=== PATIENT | female | born 1985 | race Caucasian/White ===

== ENCOUNTER 2018-05-15 12:09 | Emergency (ER) | payer OTHER ==
[2018-05-15 12:49] VITALS: BP 140/91
--- NOTE | 2018-05-15 13:22 | UC ---
Respiratory Complaint HPI - HPI Summary HPI Summary: Pt presents with c/o cough and nasal congestion X 3 days. - History of Current Complaint Chief Complaint: UCRespiratory Stated Complaint: HEAD/CHEST CONGESTION COUGH Time Seen by Provider: 05/15/18 13:13 Hx Obtained From: Patient Hx Last Menstrual Period: 04/27/18 ?: No Onset/Duration: Sudden Onset, Lasting Days, Still Present Timing: Constant Severity Initially: Mild Severity Currently: Mild Pain Intensity: 2 Character: Cough: Nonproductive Aggravating Factors: Deep Breaths, Recumbent Position Alleviating Factors: Nothing Associated Signs And Symptoms: Positive: URI, Nasal Congestion - Risk Factors Pulmonary Embolism Risk Factors: Negative Cardiac Risk Factors: Negative Pseudomonas Risk Factors: Negative Tuberculosis Risk Factors: Negative - Allergies/Home Medications Allergies/Adverse Reactions: Allergies Allergy/AdvReac Type Severity Reaction Status Date / Time No Known Allergies Allergy Verified 05/15/18 12:49 Home Medications: Home Medications Ethinyl Estradiol/Drospirenone [Gianvi 3 mg-0.02 mg Tablet] 1 tab PO DAILY 05/15 [History Confirmed 05/15/18] PMH/Surg Hx/FS Hx/Imm Hx Previously Healthy: Yes - Surgical History Surgical History: None - Family History Known Family History: Positive: Cardiac Disease - Social History Occupation: Employed Full-time Lives: With Family Alcohol Use: None Substance Use Type: None Smoking Status (MU): Never Smoked Tobacco Have You Smoked in the Last Year: No - Immunization History Most Recent Influenza Vaccination: unknown Most Recent Tetanus Shot: 08/18/15 Most Recent Pneumonia Vaccination: unknown Review of Systems All Other Systems Reviewed And Are Negative: Yes Constitutional: Positive: Fatigue Skin: Positive: Negative Eyes: Positive: Negative ENT: Positive: Sinus Congestion Respiratory: Positive: Cough Cardiovascular: Positive: Negative Gastrointestinal: Positive: Negative Genitourinary: Positive: Negative Motor: Positive: Negative Neurovascular: Positive: Negative Musculoskeletal: Positive: Myalgia Neurological: Positive: Negative Psychological: Positive: Negative Is Patient Immunocompromised?: No Physical Exam Triage Information Reviewed: Yes Appearance: Well-Appearing Vital Signs: Initial Vital Signs Temp 99.2 F 05/15/18 12:47 Pulse 110 05/15/18 12:47 Resp 20 05/15/18 12:47 BP 140/91 05/15/18 12:47 Pulse Ox 100 05/15/18 12:47 Vital Signs Reviewed: Yes Eye Exam: Normal ENT Exam: Normal Dental Exam: Normal Neck exam: Normal Respiratory Exam: Normal Respiratory: Positive: Normal breath sounds Cardiovascular Exam: Normal Musculoskeletal Exam: Normal Neurological Exam: Normal Psychological Exam: Normal Skin Exam: Normal UC Diagnostic Evaluation - Laboratory O2 Sat by Pulse Oximetry: 100 Respiratory Course/Dx - Differential Dx/Diagnosis Differential Diagnosis/HQI/PQRI: Bronchitis, Influenza Provider Diagnosis: Viral syndrome Discharge - Sign-Out/Discharge Documenting (check all that apply): Patient Departure All imaging exams completed and their final reports reviewed: No Studies - Discharge Plan Condition: Stable Disposition: HOME Prescriptions: Albuterol HFA INHALER* [Ventolin HFA Inhaler*] 1 - 2 puff INH Q4H PRN #1 mdi PRN Reason: Sob/Wheezing Benzonatate CAP* [Tessalon 100 MG CAP*] 200 mg PO Q8H PRN #30 cap PRN Reason: Cough Patient Education Materials: Viral Syndrome (ED) Forms: *Work Release Referrals: [facility] [Outside] - If Needed No Primary Care Phys,NOPCP [Primary Care Provider] - - Billing Disposition and Condition Condition: STABLE Disposition: Home
== END 2018-05-15 13:39 | disposition home or self-care (01) ==
LOC: UCEAST 12:09
DX: B34.9 Viral infection, unspecified (principal); R09.81 Nasal congestion
CPT/HCPCS: 99212; G0463

== ENCOUNTER 2018-06-19 12:24 | Emergency (ER) | payer OTHER ==
[2018-06-19 12:33] VITALS: BP 138/98
--- NOTE | 2018-06-19 13:15 | UC ---
Nausea/Vomiting/Diarrhea HPI - HPI Summary HPI Summary: 32-year-old female presents with onset of intermittent lower abdominal cramping , nausea, and diarrhea last night. States cramping improves after defecation. Reports 4-5 episodes of watery diarrhea. States she had been out drinking last night and had several carbonated mixed drinks. States she's had some similar issues in the past when she has consumed large amounts of carbonated beverages. Denies fever, chills, weakness, dizziness, lightheadedness, vomiting, blood in stool, melena, dysuria, frequency, urgency, hematuria, recent travel out of the country or recent antibiotic use. - History of Current Complaint Chief Complaint: UCGeneralIllness Stated Complaint: SEVERE STOMACH PAIN Hx Obtained From: Patient Hx Last Menstrual Period: 05/16/18 Pain Intensity: 6 - Allergies/Home Medications Allergies/Adverse Reactions: Allergies Allergy/AdvReac Type Severity Reaction Status Date / Time No Known Allergies Allergy Verified 05/15/18 12:49 PMH/Surg Hx/FS Hx/Imm Hx Previously Healthy: Yes - Denies significant PMH - Surgical History Surgical History: None - Family History Known Family History: Positive: Cardiac Disease - Social History Occupation: Employed Full-time Lives: With Family Alcohol Use: None Substance Use Type: None Smoking Status (MU): Never Smoked Tobacco Have You Smoked in the Last Year: No - Immunization History Most Recent Influenza Vaccination: unknown Most Recent Tetanus Shot: 08/18/15 Most Recent Pneumonia Vaccination: unknown Review of Systems All Other Systems Reviewed And Are Negative: Yes Constitutional: Negative: Fever, Chills Skin: Positive: Negative Respiratory: Negative: Shortness Of Breath, Cough Cardiovascular: Negative: Palpitations, Chest Pain Gastrointestinal: Positive: Abdominal Pain - Intermittent cramping, Diarrhea, Nausea. Negative: Vomiting Genitourinary: Negative: Dysuria, Hematuria, Frequency, Urgency, Vaginal/Penile Discharge, Abnormal Bleeding Musculoskeletal: Positive: Negative Neurological: Positive: Negative Is Patient Immunocompromised?: No Physical Exam - Summary Physical Exam Summary: GENERAL APPEARANCE: Well developed, well nourished, alert and cooperative, and appears to be in no acute distress. EYES: Conjunctiva clear. No drainage. Vision is grossly intact. EARS: External auditory canals and tympanic membranes clear, hearing grossly intact. NOSE: No nasal discharge. THROAT: Pharynx normal. No tonsilar inflammation, swelling, exudate, or lesions. Uvula midline. Oral cavity normal. Teeth and gingiva in good general condition. NECK: Neck supple, non-tender without lymphadenopathy. CARDIAC: Normal S1 and S2. No S3, S4 or murmurs. Rhythm is regular. There is no peripheral edema, cyanosis or pallor. Extremities are warm and well perfused. Capillary refill is less than 2 seconds. Peripheral pulses intact. LUNGS: Clear to auscultation without rales, rhonchi, wheezing or diminished breath sounds. ABDOMEN: Positive bowel sounds. Soft, nondistended abdomen. Mild lower abdominal tenderness. No guarding or rebound. No masses or hepatosplenomegally. No CVA tenderness. MUSKULOSKELETAL: ROM intact to all extremities. No joint erythema or tenderness. Normal muscular development. Normal gait. SKIN: Skin normal color, texture and turgor with no lesions or eruptions. Triage Information Reviewed: Yes Vital Signs: Initial Vital Signs Temp 98 F 06/19/18 12:31 Pulse 98 06/19/18 12:31 Resp 17 06/19/18 12:31 BP 138/98 06/19/18 12:31 Pulse Ox 100 06/19/18 12:31 Vital Signs Reviewed: Yes Naus/Vom/Diarrhea Course/Dx - Course Course Of Treatment: 32-year-old female presents with onset of intermittent lower abdominal cramping , nausea, and diarrhea last night. States cramping improves after defecation. Reports 4-5 episodes of watery diarrhea. States she had been out drinking last night and had several carbonated mixed drinks. States she's had some similar issues in the past when she has consumed large amounts of carbonated beverages. Denies fever, chills, weakness, dizziness, lightheadedness, vomiting, blood in stool, melena, dysuria, frequency, urgency, hematuria, recent travel out of the country or recent antibiotic use. Afebrile. Vital signs stable. Exam was overall unremarkable except for some mild lower abdominal tenderness without guarding or rebound. Recommending conservative treatment for acute diarrhea. She is to return here or follow up with primary care provider in 3-5 days if symptoms do not improve. Anticipatory guidance and warning symptoms were reviewed with the patient. Verbalizes understanding and agrees with plan of care. - Differential Dx/Diagnosis Differential Diagnoses - Female: Appendicitis, Diverticulosis, Gastroenteritis ( Viral), Gastroenteritis (Bacterial), Diarrhea, Colitis, Dehydration Provider Diagnosis: Acute diarrhea Condition At Discharge: Stable Discharge - Sign-Out/Discharge Documenting (check all that apply): Patient Departure All imaging exams completed and their final reports reviewed: No Studies - Discharge Plan Condition: Stable Disposition: HOME Patient Education Materials: Acute Diarrhea (ED) Forms: *Work Release Referrals: No Primary Care Phys,NOPCP [Primary Care Provider] - Additional Instructions: Acute diarrhea typically resolves on its own without treatment over 2-3 days. The most important consideration with diarrhea is avoiding dehydration. Be sure to drink plenty of fluids. Avoid beverages containing caffeine or artificial sweeteners as these can worsen symptoms. Be sure to eat a well balanced diet. Boiled starches and cereals (potatoes, rice , cream of wheat, oatmeal) as well as food such as crackers, toast, bananas, soups and boiled vegetables are usually recommended if you are having watery diarrhea. Be sure to use good hand hygiene to prevent spreading infection. Use an over the counter pain medication such as acetaminophen (Tylenol) or ibuprofen (Advil, Motrin) according to directions as needed for aches and pains. Return here or follow up with your primary care provider in 3-5 days if symptoms persist. Seek immediate medical attention in the emergency room if you have fever greater than 100.5 F, have severe abdominal pain, persistent vomiting, blood in your vomit or stool, you become weak or dizzy, or have any worsening of symptoms. - Billing Disposition and Condition Condition: STABLE Disposition: Home
== END 2018-06-19 13:38 | disposition home or self-care (01) ==
LOC: UCEAST 12:24
DX: R19.7 Diarrhea, unspecified (principal); R10.30 Lower abdominal pain, unspecified; R11.0 Nausea
CPT/HCPCS: 99201; G0463

== ENCOUNTER 2018-09-10 12:04 | Emergency (ER) | payer OTHER ==
[2018-09-10 13:18] LABS: ABS Monocytes 0.6 10^3/ul (0-0.8); ABS Neutrophils 7.4 10^3/ul (1.5-7.7); Eosinophil % 0.5 %; Hematocrit 42 % (35-47); Hemoglobin 14.2 g/dL (12.0-16.0); Lymphocyte % 11.1 %; Mean Corpuscular HGB Conc 34 g/dL (31-36); Mean Corpuscular Hemoglobin 33 pg (27-31); Mean Corpuscular Volume 97 fL (80-97); Mean Platelet Volume 7.4 fL (7.4-10.4); Platelet Count 183 10^3/uL (150-450); Red Blood Count 4.29 10^6 /uL (3.70-4.87); Red Cell Distribution Width 13 % (10-15); White Blood Count 9.1 10^3/uL (3.5-10.8)
[2018-09-10 13:32] LABS: Activated Partial Thrombo Time 29.5 seconds (26.0-38.0); INR 0.92 (0.82-1.09)
[2018-09-10 13:38] LABS: ALT 8 U/L (7-52); AST 12 U/L (13-39); Albumin/Globulin Ratio 1.3 (1-3); Alkaline Phosphatase 55 U/L (34-104); Amylase 18 U/L (29-103); Anion Gap 9 mmol/L (2-11); Blood Urea Nitrogen 9 mg/dL (6-24); C Reactive Protein 139.63 mg/L (<8.01); CO2 Carbon Dioxide 23 mmol/L (22-32); Calcium 8.8 mg/dL (8.6-10.3); Chloride 101 mmol/L (101-111); EGFR African American 109.1 (>60); EGFR Non-African American 90.1 (>60); Glucose 102 mg/dL (70-100); Potassium 3.4 mmol/L (3.5-5.0); Sodium 133 mmol/L (135-145)
[2018-09-10 13:42] LABS: HCG Pregnancy < 0.60 mIU/mL
--- NOTE | 2018-09-10 13:42 | ED ---
Abdominal Pain/Female - HPI Summary HPI Summary: Pt is a 33 y/o F presenting to the ED with a chief complaint of abd pain in the RLQ radiating up to the R flank onset on 09/08/18 during the night. She states that the pain has been constant since then, but intermittent in severity, and much worse since last night. She also reports she has a slight URI, with associated productive cough with white and green phlegm, and nasal congestion, that she has been taking Theraflu for. She reports that the bumps on the road make the pain somewhat worse. The pain is currently an 8/10, but sometimes reduces to a 5/10. She denies sinus pain, fever, nausea, vomiting, vaginal bleeding, vaginal discharge, dysuria, hematuria , or burning with urination. Pt states she had a "kidney infection" when she was a young girl. Pt has no hx kidney stones. Home Medications Medication Instructions Recorded Confirmed Type Ethinyl Estradiol/Drospirenone 1 tab PO DAILY 09/10/18 09/10/18 History [Drospirenone-Ee 3-0.02 mg Tab] - History of Current Complaint Chief Complaint: EDAbdPain Stated Complaint: LOWER RIGHT ABD PAIN Time Seen by Provider: 09/10/18 12:32 Hx Obtained From: Patient, Family/[employer] - mother Hx Last Menstrual Period: 08/10/18 Onset/Duration: Sudden Onset, Lasting Days, Still Present Timing: Constant Severity Initially: Moderate Severity Currently: Severe Pain Intensity: 8 Pain Scale Used: 0-10 Numeric Location: Discrete At: RLQ Radiates: Yes Radiates to: Flank Character: Sharp Aggravating Factor(s): Movement Alleviating Factor(s): Nothing Associated Signs and Symptoms: Positive: Cough. Negative: Fever, Urinary Symptoms, Vaginal Bleeding, Vaginal Discharge, Nausea, Vomiting Allergies/Adverse Reactions: Allergies Allergy/AdvReac Type Severity Reaction Status Date / Time No Known Allergies Allergy Verified 09/10/18 12:05 Home Medications: Home Medications Ethinyl Estradiol/Drospirenone [Drospirenone-Ee 3-0.02 mg Tab] 1 tab PO DAILY [History Confirmed 09/10/18] PMH/Surg Hx/FS Hx/Imm Hx Previously Healthy: No Endocrine/Hematology History: Denies: Hx Diabetes History: Reports: Hx Kidney Infection - Surgical History Surgical History: Yes - tonsillectomy Infectious Disease History: No Infectious Disease History: Denies: Traveled Outside the [place] in Last 30 Days - Family History Known Family History: Positive: Cardiac Disease - Social History Alcohol Use: Weekly Hx Substance Use: No Substance Use Type: Reports: None Hx Tobacco Use: No Smoking Status (MU): Never Smoked Tobacco Have You Smoked in the Last Year: No Review of Systems Negative: Fever Positive: Nasal Discharge. Negative: Other - sinus pain Cardiovascular: Negative Positive: Cough Positive: Abdominal Pain. Negative: Vomiting, Nausea Negative: burning, dysuria, discharge, hematuria Positive: Other - right flank pain Skin: Negative Neurological: Negative Psychological: Normal All Other Systems Reviewed And Are Negative: Yes Physical Exam - Summary Physical Exam Summary: Appearance: Ill-appearing, moderate pain distress, well-nourished Skin: Warm, color reflects adequate perfusion, dry Head: Normal Head/Face inspection, atraumatic Eyes: Conjunctiva clear ENT: Normal inspection Neck: Supple, no nodes, no JVD Respiratory: Lungs clear, normal breath sounds, no respiratory distress Cardio: RRR, No murmur, pulses normal, brisk capillary refill Abdomen: Soft, RLQ tenderness at McBurneys point, +rebound, no guarding, no masses, non-distended, no CVAT Bowel sounds: Present Musculoskeletal: Strength Intact/ROM intact, no calf tenderness, no edema. R lumbar paraspinal tenderness that is lower than right CVAT Psychological: Normal Neuro: Alert, muscle tone normal, no focal deficit Triage Information Reviewed: Yes Vital Signs On Initial Exam: Initial Vitals Temp Pulse Resp BP Pulse Ox 99.7 F 107 18 121/96 100 09/10/18 12:05 09/10/18 12:05 09/10/18 12:05 09/10/18 12:05 09/10/18 12:05 Vital Signs Reviewed: Yes Diagnostics - Vital Signs Vital Signs Temp Pulse Resp BP Pulse Ox 09/10/18 12:05 99.7 F 107 18 121/96 100 - Laboratory Lab Results: Lab Results 09/10/18 09/10/18 09/10/18 Range/Units 13:02 13:02 13:02 WBC 9.1 (3.5-10.8) 10^3/uL RBC 4.29 (3.70-4.87) 10^6 /uL Hgb 14.2 (12.0-16.0) g/dL Hct 42 (35-47) % MCV 97 (80-97) fL MCH 33 H (27-31) pg MCHC 34 (31-36) g/dL RDW 13 (10-15) % Plt Count 183 (150-450) 10^3/uL MPV 7.4 (7.4-10.4) fL Neut % (Auto) 81.6 % Lymph % (Auto) 11.1 % Coke % (Auto) 6.5 % Eos % (Auto) 0.5 % Baso % (Auto) 0.3 % Absolute Neuts (auto) 7.4 (1.5-7.7) 10^3/ul Absolute Lymphs (auto) 1.0 (1.0-4.8) 10^3/ul Absolute Monos (auto) 0.6 (0-0.8) 10^3/ul Absolute Eos (auto) 0.0 (0-0.6) 10^3/ul Absolute Basos (auto) 0.0 (0-0.2) 10^3/ul Absolute Nucleated RBC 0.0 10^3/ul Nucleated RBC % 0.0 INR (Anticoag Therapy) 0.92 (0.82-1.09) APTT 29.5 (26.0-38.0) seconds Lactic Acid 1.6 (0.5-2.0) mmol/L Result Diagrams: 09/10/18 13:02 09/10/18 13:02 Lab Statement: Any lab studies that have been ordered have been reviewed, and results considered in the medical decision making process. - CT CT abd/pelv CT Interpretation Completed By: Radiologist Summary of CT Findings: 1. THE APPENDIX IS NOT SEEN. THERE IS NO INFLAMMATORY CHANGE WITHIN THE RIGHT LOWER QUADRANT. 2. RIGHT PYELONEPHRITIS. ED physician has reviewed this report. - Ultrasound Appendix US Ultrasound Interpretation Completed By: Radiologist Summary of Ultrasound Findings: Nondiagnostic exam due to nonvisualization of the appendix. Negative for RIGHT lower quadrant free fluid or visualized lymphadenopathy. Correlate with clinical assessment and consider CT for further evaluation if deemed appropriate. ED physician has reviewed this report. Re-Evaluation - Re-Evaluation 1st re-eval Re-Evaluation Time: 15:00 Change: Unchanged Comment: I informed the patient of her results. Second Eval Re-Evaluation Time: 17:12 Change: Unchanged Comment: Results of CT were discussed with patient. She will be discharged to home and [facility]. She was given a prescription for Cipro 500 mg BID. Patient is agreeable with discharge to home. Pt and mother are advised of black box warning with Cipro. Third Eval Re-Evaluation Time: 17:47 Change: Unchanged Comment: Instructions given to the patient. Patient is agreeable with discharge to home and hemodynamically stable. Strict return precautions given. Abdominal Pain Fem Course/Dx - Course Course Of Treatment: Pt is a 33 y/o F presenting to the ED with a chief complaint of abd pain in the RLQ radiating up to the R flank onset on 09/08/18 during the night. She also reports productive cough with white/green phlegm and nasal congestion. The pain is currently an 8/10, but sometimes reduces to a 5/ 10. She denies sinus pain, fever, nausea, vomiting, vaginal bleeding, vaginal discharge, dysuria, hematuria, or burning with urination. Pts hematology shows MCH of 33. Her chemistry shows Sodium of 133, Potassium of 3.4, AST of 12 , CRP of 139.63, Amylase of 18, and Lipase of 10. Her urine shows 1+ protein, trace ketones, 2+ blood, positive nitrate, 3+ leukocyte esterase, 3+ WBC, 3+ RBC , present squamous epithelial cells, and 1+ bacteria. Ultrasound of the appendix was done first with her RLQ pain, no CVAT, in an attempt to spare pt the radiation. US of the appendix was nondiagnostic, will proceed with CT a/p with contrast. CT a/p shows: 1. THE APPENDIX IS NOT SEEN. THERE IS NO INFLAMMATORY CHANGE WITHIN THE RIGHT LOWER QUADRANT. 2. RIGHT PYELONEPHRITIS. During ED course, patient received toradol 30 mg IV PUSH, Ceftriaxone sodium 1 gm in sodium chloride 50 ml2 @ 100 mls/hr IVPB, and fluids. Results of CT were discussed with patient. She will be discharged to home and needs definite follow up with [facility]. She was given a prescription for Cipro 500 mg BID. Patient is agreeable with discharge to home. - Diagnoses Provider Diagnoses: Pyelonephritis of right kidney Discharge - Sign-Out/Discharge Documenting (check all that apply): Patient Departure - discharge Patient Received Moderate/Deep Sedation with Procedure: No - Discharge Plan Condition: Stable Disposition: HOME Prescriptions: Ciprofloxacin TAB* [Cipro 500 MG TAB*] 500 mg PO BID #28 tab Patient Education Materials: Kidney Infection (ED) Forms: *Work Release Referrals: [facility] [Outside] - 1 Day Additional Instructions: You had a CT abdomen and pelvis that showed right pyelonephritis. You were given ceftriaxone 1 g IV for treatment of this initially. Your white cell count was not elevated and he did not have a fever and your pain was controlled. He will need to see the [facility] in the next 1-2 days to make sure you are responding to treatments and tolerating the medication. Dr. Sanders has sent a prescription for Cipro 500 mg twice a day that you will need to take for 2 weeks. You should take here first dose of that tonight before bed. We've given you a copy of your CT. Return to the emergency department for any new or worsening symptoms. - Billing Disposition and Condition Condition: STABLE Disposition: Home - Attestation Statements Document Initiated by Carolyn: Yes Documenting Scribe: Anitha Becker Provider For Whom Carolyn is Documenting (Include Credential): Dr. Dilia Sanders MD. Scribe Attestation: Anitha Anderson scribed for Dr. Dilia Sanders MD. on 09/12/18 at 0654. Scribe Documentation Reviewed: Yes Provider Attestation: The documentation as recorded by the miriamibe, Anitha Becker accurately reflects the service I personally performed and the decisions made by me, Dr. Dilai Sanders MD. Status of Scribe Document: Viewed
[2018-09-10] MEDS ORDERED: Ketorolac INJ* 30 MG/ML 1 ML VIAL IV PUSH ONE (13:48)
[2018-09-10] MEDS ORDERED: NS 0.9% 1000 ML** 1,000 ML BOLUS SCH (14:00)
[2018-09-10 14:18] LABS: Urine Appearance Cloudy; Urine Bacteria 1+ (Absent); Urine Bilirubin Negative (Negative); Urine Blood 2+ (Negative); Urine Color Yellow; Urine Glucose Negative (Negative); Urine Ketones Trace (Negative); Urine Nitrite Positive (Negative); Urine Protein 1+(30 mg/dL) (Negative); Urine Red Blood Cell 3+(>10/hpf) (Absent); Urine Specific Gravity 1.016 (1.010-1.030); Urine Squamous Epithelial Cell Present (Absent); Urine Urobilinogen Negative (Negative); Urine White Blood Cell 3+(>20/hpf) (Absent)
[2018-09-10] MEDS ORDERED: Iohexol 300* (CONTRAST) 10 ML SDV IV ONE (15:36)
[2018-09-10] MEDS ORDERED: cefTRIAXone(*) 1 GM in NS 0.9% 50 ML* 50 ML IVPB ONE (16:56)
[2018-09-10 17:47] VITALS: BP 134/97
--- NOTE | 2018-09-12 05:39 | PN ---
Progress Note - Progress Note Date of Service: 09/10/18 Note: e. coli in UA prelim awaiting sensitivities pt placed on cipro
== END 2018-09-10 17:47 | disposition home or self-care (01) ==
LOC: ED 12:04
DX: N12 Tubulo-interstitial nephritis, not specified as acute or chronic (principal)
CPT/HCPCS: 36415; 74177; 76705; 80053; 81003; 81015; 82150; 83605; 83690; 84702; 85025; 85610; 85730; 86140; 87077; 87086; 87186; 96361; 96365; 96375; 99282; J0696; J1885; Q9967

== ENCOUNTER 2019-02-22 13:20 | Emergency (ER) | payer SELFPAY ==
[2019-02-22 14:04] VITALS: BP 146/99
--- NOTE | 2019-02-22 14:54 | UC ---
Shoulder Pain HPI - HPI Summary HPI Summary: non tramatic right shoulder pain began last night after carrying a bucket at work - History of Current Complaint Chief Complaint: UCUpperExtremity Stated Complaint: RT. SHOULDER PAIN Time Seen by Provider: 02/22/19 14:43 Hx Obtained From: Patient Hx Last Menstrual Period: 1 month ago ?: No Onset/Duration: Sudden Onset, Lasting Days - 1 Timing: Constant Location Of Pain: Is Discrete @ - right shoulder Pain Intensity: 6 Pain Scale Used: 0-10 Numeric Character: Aching, Throbbing, Stiffness Aggravating Factor(s): Movement Alleviating Factor(s): Nothing Associated Signs And Symptoms: Positive: Negative Related History: Dominant Hand Right - Allergies/Home Medications Allergies/Adverse Reactions: Allergies Allergy/AdvReac Type Severity Reaction Status Date / Time No Known Allergies Allergy Verified 02/22/19 14:04 PMH/Surg Hx/FS Hx/Imm Hx Previously Healthy: Yes - Surgical History Surgical History: Yes Surgery Procedure, Year, and Place: tonsillectomy - Family History Known Family History: Positive: Cardiac Disease - Social History Occupation: Employed Full-time Lives: With Family Alcohol Use: Occasionally Substance Use Type: None Smoking Status (MU): Never Smoked Tobacco Have You Smoked in the Last Year: No - Immunization History Most Recent Influenza Vaccination: unknown Most Recent Tetanus Shot: 08/18/15 Most Recent Pneumonia Vaccination: unknown Review of Systems All Other Systems Reviewed And Are Negative: Yes Constitutional: Positive: Negative Skin: Positive: Negative Eyes: Positive: Negative ENT: Positive: Negative Respiratory: Positive: Negative Cardiovascular: Positive: Negative Gastrointestinal: Positive: Negative Genitourinary: Positive: Negative Motor: Positive: Negative Neurovascular: Positive: Negative Musculoskeletal: Positive: Arthralgia - right shoulder, Myalgia Neurological: Positive: Negative Psychological: Positive: Negative Is Patient Immunocompromised?: No Physical Exam Triage Information Reviewed: Yes Appearance: Well-Appearing, No Pain Distress, Well-Nourished Vital Signs: Initial Vital Signs Temp 97.8 F 02/22/19 13:57 Pulse 94 02/22/19 13:57 Resp 16 02/22/19 13:57 BP 146/99 02/22/19 13:57 Pulse Ox 100 02/22/19 13:57 Vital Signs Reviewed: Yes Eye Exam: Normal Eyes: Positive: Conjunctiva Clear ENT Exam: Normal ENT: Positive: Normal ENT inspection, Hearing grossly normal. Negative: Nasal congestion, Trismus, Muffled voice, Hoarse voice Dental Exam: Normal Neck exam: Normal Neck: Positive: Supple, Nontender, No Lymphadenopathy Respiratory Exam: Normal Respiratory: Positive: Chest non-tender, No respiratory distress, No accessory muscle use Cardiovascular Exam: Normal Cardiovascular: Positive: RRR, Pulses Normal, Brisk Capillary Refill Musculoskeletal Exam: Normal Musculoskeletal: Positive: Strength Intact, No Edema, ROM Limited @ - right shoulder Neurological Exam: Normal Neurological: Positive: Alert Psychological Exam: Normal Skin Exam: Normal Diagnostics - Radiology No standard instances Radiology Interpretation Completed By: ED Physician - no fxacture noted Shoulder Course/Dx - Course Course Of Treatment: rest ice, naproxen gentle rom follow with ortho /pcp prn - Differential Dx/Diagnosis Provider Diagnosis: Shoulder pain Discharge ED - Sign-Out/Discharge Documenting (check all that apply): Patient Departure All imaging exams completed and their final reports reviewed: No - Discharge Plan Condition: Stable Disposition: HOME Prescriptions: Naproxen [Naproxen 500 mg tab] 500 mg PO BID #30 tab Patient Education Materials: Tendinitis (ED), Shoulder Pain (ED) Referrals: [facility] [address] [Outside] - 2 Weeks (for blood pressure recheck ) Fitz Sykes MD [Medical Doctor] - 4 Days - Billing Disposition and Condition Condition: STABLE Disposition: Home
--- NOTE | 2019-02-23 09:40 | UC ---
- Progress Note Progress Note: Patient Name: VENANCIO RAO Medical Record#: [id number] Ordering Physician: Randolph Kahn MD Acct.#: [id number] : 1985 Age: 33 Sex: F Location: [facility] [place] Exam Date: 02/22/19 143 ADM Status: REG ER Order Information: SHOULDER RIGHT 2+ VWS Accession Number: [id number] CPT: 84038 INDICATION: Right shoulder pain. TECHNIQUE: 4 views of the right shoulder were obtained. FINDINGS: The soft tissues are unremarkable. The bone mineralization is within normal limits. No fracture is identified. Anatomic alignment is maintained. The joint spaces are preserved. IMPRESSION: NO FRACTURE OR TRAUMATIC MALALIGNMENT OF THE RIGHT SHOULDER <Electronically signed by Howie Contreras MD in [place]> 02/22/19 1447 Dictated By: Howie Contreras MD Dictated Date/Time: 02/22/19 1445 Transcribed Date/Time: 02/22/19 144 Copy to: CC:No Primary Care Phys,NOPCP ; Randolph Kahn MD Imaging - [facility] Imaging - [facility] [address] [address] ph ([phone]) ph ([phone]) ph ([phone]) This report is only to be considered final once signed by the Provider(s) as displayed in the "<Electronically Signed by >" field (s). Absence of a signature indicates the report is in a draft status and still needs to be finalized. In the event this document was created by someone other than the signing Provider, the individual initiating the document will be listed in the "Entered by:" or "Dictated by:" torres. 1 of 1 Course/Dx - Diagnoses Provider Diagnoses: Shoulder pain Discharge ED - Sign-Out/Discharge Documenting (check all that apply): Post-Discharge Follow Up All imaging exams completed and their final reports reviewed: Yes - Discharge Plan Condition: Stable Disposition: HOME Prescriptions: Naproxen [Naproxen 500 mg tab] 500 mg PO BID #30 tab Patient Education Materials: Tendinitis (ED), Shoulder Pain (ED) Referrals: [facility] [Outside] - 2 Weeks (for blood pressure recheck ) Fitz Sykes MD [Medical Doctor] - 4 Days - Billing Disposition and Condition Condition: STABLE Disposition: Home
== END 2019-02-22 15:10 | disposition home or self-care (01) ==
LOC: UCEAST 13:20
DX: M25.511 Pain in right shoulder (principal)
CPT/HCPCS: 99212; G0463